=== PATIENT | female | born 1960 | race Two or more races ===

== ENCOUNTER 2019-01-14 20:23 | Emergency (ER) | payer SELFPAY ==
[~2019-01-14] VITALS: Ht 165.1 cm; Wt 54.0 kg
[2019-01-14 22:55] VITALS: BP 122/76
== END 2019-01-15 00:30 | disposition left against medical advice (07) ==
LOC: ER 20:38
DX: Z53.21 Procedure and treatment not carried out due to patient leaving prior to being seen by health care provider (principal); E11.9 Type 2 diabetes mellitus without complications; F17.200 Nicotine dependence, unspecified, uncomplicated

== ENCOUNTER 2020-06-21 08:09 | Emergency (ER) | payer MEDICAID ==
[~2020-06-21] VITALS: Ht 167.6 cm; Wt 59.0 kg
[2020-06-21 08:30] VITALS: BP 144/86
[2020-06-21] MEDS ORDERED: ACETAMINOPHEN 325MG TABLET PO ONE (08:45)
== END 2020-06-21 15:00 | disposition home or self-care (01) ==
LOC: ER 08:09
DX: M54.5 Low back pain (principal); G89.29 Other chronic pain; M79.662 Pain in left lower leg; M79.661 Pain in right lower leg; E11.9 Type 2 diabetes mellitus without complications; I10 Essential (primary) hypertension; F14.10 Cocaine abuse, uncomplicated; Z59.0 Homelessness
CPT/HCPCS: 93005; 93970; 99284

== ENCOUNTER 2021-07-21 18:24 | Inpatient (IN) | payer MEDICAID, OTHER ==
[~2021-07-21] VITALS: Ht 170.2 cm; Wt 63.1 kg
[2021-07-21] MEDS ORDERED: SODIUM CHLORIDE 0.9% 1,000 ML IV ONE ×2 (19:00→20:00)
[2021-07-21 19:25] LABS: BASOPHILS % 0.5 % (0.0-2.0); HEMATOCRIT. 49.8 % (36.0-48.0); LYMPHOCYTES % 11.4 % (20.0-50.0); MEAN CORPUSCULAR HEMOGLOBIN 27.9 pg (28.0-32.0); MEAN CORPUSCULAR VOLUME 92.5 fL (81.0-99.0); MEAN PLATELET VOLUME 11.4 fl (7.4-10.4); MONOCYTES % 7.5 % (2.0-8.0); NEUTROPHILS % 80.6 % (40.0-76.0); PLATELET 213 x1000/uL (130-400); RED BLOOD CELL COUNT 5.38 mill/uL (4.2-5.4); RED CELL DISTRIBUTION WIDTH 17.3 % (11.6-14.6)
[2021-07-21 19:30] LABS: CHLORIDE 128 mEq/L (98-107)
[2021-07-21 19:34] LABS: ETHANOL BLOOD < 10 mg/dL
[2021-07-21 19:40] LABS: BETA HYDROXYBUTYRATE 0.5 mMol/L (0.0-0.3)
[2021-07-21 19:56] LABS: CLARITY URINE CLEAR (CLEAR); COLOR URINE YELLOW (YELLOW); KETONES URINE NEGATIVE (NEGATIVE); LEUKOCYTE ESTERASE URINE NEGATIVE (NEGATIVE); NITRITE URINE NEGATIVE (NEGATIVE); OCCULT BLOOD URINE NEGATIVE (NEGATIVE); PROTEIN URINE NEGATIVE (NEGATIVE); SPECIFIC GRAVITY URINE 1.036 (1.005-1.030); UROBILINOGEN URINE 0.2 E.U./dL (0.2-1.0)
[2021-07-21] MEDS ORDERED: INSULIN REGULAR (DRIP) 100 UNITS in SODIUM CHLORIDE 0.9% 99 ML IV ONE (20:00)
[2021-07-21 20:07] LABS: *AMPHETAMINES SCREEN URINE NEGATIVE (NEGATIVE); *BARBITURATES SCREEN URINE NEGATIVE (NEGATIVE); *BENZODIAZEPINES SCREEN URINE NEGATIVE (NEGATIVE); *COCAINE SCREEN URINE NEGATIVE (NEGATIVE); METHADONE URINE SCREEN NEGATIVE (NEGATIVE); OPIATES URINE SCREEN NEGATIVE (NEGATIVE)
[2021-07-21 20:08] LABS: CANNABINOID URINE SCREEN NEGATIVE (NEGATIVE); PHENCYCLIDINE URINE SCREEN NEGATIVE (NEGATIVE)
[2021-07-21] MEDS ORDERED: DEXTROSE 50% WATER 50ML SYRINGE IV PRN ×2 (20:15)
[2021-07-21] MEDS ORDERED: INSULIN REGULAR (DRIP) 100 UNITS in SODIUM CHLORIDE 0.9% 99 ML IV SCH (20:15)
[2021-07-21] MEDS: BLOOD SUGAR DIAGNOSTIC STRIP TEST SCH ×4 (20:15→23:53)
[2021-07-22] MEDS: BLOOD SUGAR DIAGNOSTIC STRIP TEST SCH ×13 (00:41→21:57)
[2021-07-22] MEDS ORDERED: DEXTROSE 50% WATER 50ML SYRINGE IV PRN (08:00)
[2021-07-22] MEDS: INSULIN LISPRO (MEDIUM DOSE) 100 UNITS/ML SUBCUT SCH ×4 (08:36→21:00)
[2021-07-22] MEDS ORDERED: ACETAMINOPHEN 325MG TABLET PO PRN (09:15)
[2021-07-22] MEDS ORDERED: ONDANSETRON HCL 4MG/2ML INJ IV PRN (09:15)
[2021-07-22] MEDS: LISINOPRIL 20MG TABLET PO SCH (09:40)
[2021-07-22] MEDS: AMLODIPINE 10MG TABLET PO SCH (09:41)
[2021-07-22] MEDS ORDERED: INSULIN GLARGINE UD 100 UNITS/ML SYR SUBCUT SCH ×2 (10:00→22:00)
[2021-07-22] MEDS ORDERED: HYDRALAZINE 20MG/ML VIAL IV NR (10:30)
[2021-07-22 13:06] LABS: CHLORIDE 143 mEq/L (98-107)
[2021-07-22 13:59] VITALS: BP 139/99
[2021-07-22 14:00] VITALS: BP 136/99
[2021-07-22] MEDS ORDERED: DOCU-138 MT (14:29)
[2021-07-22] MEDS ORDERED: AMLO5TAB4 MT (14:29)
[2021-07-22] MEDS ORDERED: METO25TA6 PO (14:29)
[2021-07-22] MEDS ORDERED: MULT-1146 MT (14:29)
[2021-07-22] MEDS ORDERED: ATOR-2 MT (14:29)
[2021-07-22] MEDS ORDERED: SENN-257 MT (14:29)
[2021-07-22] MEDS ORDERED: PANT40TA51 MT (14:29)
[2021-07-22] MEDS ORDERED: ASPI-1497 MT (14:29)
[2021-07-22] MEDS ORDERED: DEXTROSE 5% WATER 1,000 ML IV SCH (14:30)
[2021-07-22] MEDS ORDERED: SODIUM CHLORIDE 0.9% 500 ML IV ONE (16:00)
[2021-07-22] MEDS: SODIUM CHLORIDE 0.45% 1,000 ML IV SCH (16:47)
[2021-07-22 18:00] VITALS: BP 123/96
[2021-07-22 18:30] LABS: T4 FREE 0.96 ng/dL (0.76-1.46)
[2021-07-22 18:41] LABS: FOLIC ACID (FOLATE) SERUM >20 ng/mL ng/mL (>5.38)
[2021-07-22 18:53] LABS: VITAMIN B12 SERUM >2000 pg/mL pg/mL (211-911)
[2021-07-22 20:00] VITALS: BP 123/96
[2021-07-22 22:00] VITALS: BP 145/100
[2021-07-23] VITALS (12 sets, daily range): BP systolic 106–142; BP diastolic 65–94
[2021-07-23] MEDS: SODIUM CHLORIDE 0.45% 1,000 ML IV SCH ×4 (00:26→23:45)
[2021-07-23] MEDS: BLOOD SUGAR DIAGNOSTIC STRIP TEST SCH ×4 (07:04→20:57)
[2021-07-23] MEDS: INSULIN LISPRO (MEDIUM DOSE) 100 UNITS/ML SUBCUT SCH ×4 (07:20→20:57)
[2021-07-23] MEDS: ENOXAPARIN 30MG/0.3ML SYR SUBCUT SCH (08:14)
[2021-07-23] MEDS: AMLODIPINE 10MG TABLET PO SCH (08:15)
[2021-07-23] MEDS: LISINOPRIL 20MG TABLET PO SCH (08:15)
[2021-07-23] MEDS ORDERED: ENOXAPARIN 40MG/0.4ML SYR SUBCUT SCH (09:00)
[2021-07-23 10:41] LABS: BASOPHILS % 0.4 % (0.0-2.0); EOSINOPHILS % 0.7 % (0.0-5.0); HEMATOCRIT. 43.7 % (36.0-48.0); LYMPHOCYTES % 15.7 % (20.0-50.0); MEAN CORPUSCULAR HEMOGLOBIN 28.1 pg (28.0-32.0); MEAN CORPUSCULAR VOLUME 87.8 fL (81.0-99.0); MEAN PLATELET VOLUME 9.8 fl (7.4-10.4); MONOCYTES % 4.5 % (2.0-8.0); NEUTROPHILS % 78.7 % (40.0-76.0); PLATELET 119 x1000/uL (130-400); RED BLOOD CELL COUNT 4.97 mill/uL (4.2-5.4); RED CELL DISTRIBUTION WIDTH 16.6 % (11.6-14.6)
[2021-07-23 10:49] LABS: CHLORIDE 135 mEq/L (98-107)
[2021-07-24] VITALS (12 sets, daily range): BP systolic 91–127; BP diastolic 62–93
[2021-07-24] MEDS: BLOOD SUGAR DIAGNOSTIC STRIP TEST SCH ×4 (06:19→21:42)
[2021-07-24 07:52] LABS: BASOPHILS % 0.2 % (0.0-2.0); EOSINOPHILS % 0.8 % (0.0-5.0); HEMATOCRIT. 46.3 % (36.0-48.0); LYMPHOCYTES % 18.2 % (20.0-50.0); MEAN CORPUSCULAR HEMOGLOBIN 28.3 pg (28.0-32.0); MEAN CORPUSCULAR VOLUME 87.4 fL (81.0-99.0); MONOCYTES % 4.3 % (2.0-8.0); NEUTROPHILS % 76.5 % (40.0-76.0); PLATELET 104 x1000/uL (130-400); RED CELL DISTRIBUTION WIDTH 16.3 % (11.6-14.6)
[2021-07-24 08:39] LABS: CHLORIDE 130 mEq/L (98-107)
[2021-07-24] MEDS ORDERED: LIDOCAINE HCL 1% 20ML VIAL (Pyxis) INJ ONE (08:45)
[2021-07-24] MEDS: INSULIN LISPRO (MEDIUM DOSE) 100 UNITS/ML SUBCUT SCH ×4 (09:51→21:51)
[2021-07-24] MEDS: LISINOPRIL 20MG TABLET PO SCH (09:51)
[2021-07-24] MEDS: AMLODIPINE 10MG TABLET PO SCH (09:51)
[2021-07-24] MEDS: ENOXAPARIN 30MG/0.3ML SYR SUBCUT SCH (09:51)
[2021-07-24] MEDS: SODIUM CHLORIDE 0.45% 1,000 ML IV SCH ×2 (11:34→16:32)
[2021-07-25] VITALS (13 sets, daily range): BP systolic 103–135; BP diastolic 73–96
[2021-07-25] MEDS: SODIUM CHLORIDE 0.45% 1,000 ML IV SCH ×2 (00:01→07:23)
[2021-07-25] MEDS: BLOOD SUGAR DIAGNOSTIC STRIP TEST SCH ×3 (06:45→16:55)
[2021-07-25 07:17] LABS: BASOPHILS % 0.2 % (0.0-2.0); EOSINOPHILS % 0.8 % (0.0-5.0); HEMATOCRIT. 41.7 % (36.0-48.0); HEMOGLOBIN. 13.7 g/dL (12.0-16.0); LYMPHOCYTES % 24.7 % (20.0-50.0); MEAN CORPUSCULAR VOLUME 85.1 fL (81.0-99.0); MEAN PLATELET VOLUME 10.6 fl (7.4-10.4); MONOCYTES % 5.1 % (2.0-8.0); NEUTROPHILS % 69.2 % (40.0-76.0); PLATELET 77 x1000/uL (130-400); RED CELL DISTRIBUTION WIDTH 15.5 % (11.6-14.6)
[2021-07-25] MEDS: INSULIN LISPRO (MEDIUM DOSE) 100 UNITS/ML SUBCUT SCH ×3 (07:23→17:00)
[2021-07-25 07:31] LABS: CHLORIDE 118 mEq/L (98-107)
[2021-07-25] MEDS: AMLODIPINE 10MG TABLET PO SCH (08:39)
[2021-07-25] MEDS: LISINOPRIL 20MG TABLET PO SCH (08:39)
[2021-07-25] MEDS ORDERED: ENOXAPARIN 40MG/0.4ML SYR SUBCUT SCH (09:00)
== END 2021-07-25 21:01 | DRG 420 ==
LOC: ER 18:24 → MICUSO 21:13 → EDBEDREQ 21:16 → EDBEDREQSVC 21:16 → EDBEDREQTM 21:16 → 3WST 07-22 11:46
PROVIDERS: ADMIT Internal Medicine; ATTEND Internal Medicine
PROC: 05H533Z Insertion of Infusion Device into Right Subclavian Vein, Percutaneous Approach (ICD-10-PCS; principal; 2021-07-24)
PROC: B546ZZA Ultrasonography of Right Subclavian Vein, Guidance (ICD-10-PCS; 2021-07-24)
DX: E11.00 Type 2 diabetes mellitus with hyperosmolarity without nonketotic hyperglycemic-hyperosmolar coma (NKHHC) (principal); N17.0 Acute kidney failure with tubular necrosis; G92 Toxic encephalopathy; E44.0 Moderate protein-calorie malnutrition; E87.0 Hyperosmolality and hypernatremia; E87.8 Other disorders of electrolyte and fluid balance, not elsewhere classified; E86.0 Dehydration; E87.1 Hypo-osmolality and hyponatremia; I10 Essential (primary) hypertension; Z86.73 Personal history of transient ischemic attack (TIA), and cerebral infarction without residual deficits; Z86.79 Personal history of other diseases of the circulatory system; Z68.21 Body mass index [BMI] 21.0-21.9, adult; E11.65 Type 2 diabetes mellitus with hyperglycemia
CPT/HCPCS: 36415; 71045; 76937; 80048; 80053; 80305; 80320; 81003; 82010; 82140; 82607; 82746; 82962; 83036; 84439; 84443; 84481; 84484; 85025; 92610; 93005; 97162; 99291; A6261; C1725; C1769; J0360; J1650; J1815; J3490; J7030; J7040; J7050; J7070; G0480

== ENCOUNTER 2021-08-16 05:54 | Inpatient (IN) | payer MEDICAID, OTHER ==
[~2021-08-16] VITALS: Ht 167.6 cm; Wt 54.4 kg
[2021-08-16] MEDS ORDERED: SODIUM CHLORIDE 0.9% 1,000 ML IV ONE (06:45)
[2021-08-16 07:19] LABS: BASOPHILS % 0.3 % (0.0-2.0); EOSINOPHILS % 0.4 % (0.0-5.0); HEMATOCRIT. 34.4 % (36.0-48.0); HEMOGLOBIN. 11.1 g/dL (12.0-16.0); LYMPHOCYTES % 14.1 % (20.0-50.0); MEAN CORPUSCULAR HEMOGLOBIN 28.3 pg (28.0-32.0); MEAN CORPUSCULAR VOLUME 87.5 fL (81.0-99.0); MEAN PLATELET VOLUME 8.5 fl (7.4-10.4); MONOCYTES % 5.9 % (2.0-8.0); NEUTROPHILS % 79.3 % (40.0-76.0); PLATELET 358 x1000/uL (130-400); RED BLOOD CELL COUNT 3.93 mill/uL (4.2-5.4); RED CELL DISTRIBUTION WIDTH 16.3 % (11.6-14.6)
[2021-08-16 07:20] LABS: CHLORIDE 112 mEq/L (98-107)
[2021-08-16 07:25] LABS: ETHANOL BLOOD < 10 mg/dL
[2021-08-16 07:28] LABS: BETA HYDROXYBUTYRATE 0.5 mMol/L (0.0-0.3)
[2021-08-16 08:00] LABS: CLARITY URINE CLEAR (CLEAR); COLOR URINE YELLOW (YELLOW); KETONES URINE NEGATIVE (NEGATIVE); LEUKOCYTE ESTERASE URINE NEGATIVE (NEGATIVE); NITRITE URINE NEGATIVE (NEGATIVE); OCCULT BLOOD URINE NEGATIVE (NEGATIVE); PH URINE 7.5 (4.5-8.0); PROTEIN URINE 2+ (NEGATIVE); SPECIFIC GRAVITY URINE 1.028 (1.005-1.030); UROBILINOGEN URINE 0.2 E.U./dL (0.2-1.0)
[2021-08-16 08:39] LABS: BG BASE EXCESS 3.7 mmol/L (-2.0-2.0); BG CARBOXYHEMOGLOBIN 0.2 % (0.5-1.5); BG DEOXYHEMOGLOBIN 3.8 % (0.0-5.0); BG FRACTION INSPIRED OXYGEN 21; BG HCO3 ACT 27.2 mmol/L (22.0-26.0); BG METHEMOGLOBIN 0.3 % (0.0-1.5); BG OXYGEN SATURATION 96.2 % (92.0-98.5); BG OXYHEMOGLOBIN 95.7 % (94.0-97.0); BG PCO2 37.6 mmHg (35.0-45.0); BG PH 7.478 (7.350-7.450); BG PO2 81.6 mmHg (75.0-100.0); BG SAMPLE SITE RIGHT RADIAL; BG TOTAL HEMOGLOBIN 12.1 g/dL (12.0-18.0); BG VENT MODE ROOM AIR
[2021-08-16 08:43] LABS: *AMPHETAMINES SCREEN URINE NEGATIVE (NEGATIVE); *BARBITURATES SCREEN URINE NEGATIVE (NEGATIVE); *BENZODIAZEPINES SCREEN URINE NEGATIVE (NEGATIVE); *COCAINE SCREEN URINE NEGATIVE (NEGATIVE); METHADONE URINE SCREEN NEGATIVE (NEGATIVE); OPIATES URINE SCREEN NEGATIVE (NEGATIVE)
[2021-08-16 08:44] LABS: CANNABINOID URINE SCREEN NEGATIVE (NEGATIVE); PHENCYCLIDINE URINE SCREEN NEGATIVE (NEGATIVE)
[2021-08-16] MEDS ORDERED: ACETAMINOPHEN 650MG/20.3ML UDC GT PRN (12:00)
[2021-08-16] MEDS ORDERED: DIPHENHYDRAMINE 50MG/ML VIAL IV PRN (12:00)
[2021-08-16] MEDS ORDERED: ONDANSETRON HCL 4MG/2ML INJ IV PRN (12:00)
[2021-08-16] MEDS ORDERED: IPRATROPIUM/ALBUTEROL 0.5-3(2.5)MG/3ML NEB HHN PRN (12:00)
[2021-08-16] MEDS: DEXT 5%/0.9% NACL 1,000 ML IV SCH (12:12)
[2021-08-16 22:18] LABS: T4 FREE 1.07 ng/dL (0.76-1.46)
[2021-08-16 22:19] VITALS: BP 130/96
[2021-08-16 22:30] LABS: FOLIC ACID (FOLATE) SERUM 19.1 ng/mL (>5.38)
[2021-08-17] VITALS (7 sets, daily range): BP systolic 119–147; BP diastolic 84–111
[2021-08-17] MEDS ORDERED: HYDR-4001 MT (00:56)
[2021-08-17] MEDS ORDERED: FAMO20TA8 PO (00:56)
[2021-08-17] MEDS ORDERED: AMOX1TAB16 MT (00:56)
[2021-08-17] MEDS ORDERED: LISI20TA31 PO (00:56)
[2021-08-17] MEDS ORDERED: LORA2ORA5 PO (00:56)
[2021-08-17] MEDS ORDERED: DILT60TA35 PO (00:56)
[2021-08-17] MEDS ORDERED: ATOR-2 PO (00:56)
[2021-08-17] MEDS ORDERED: CLON-457 PO (00:56)
[2021-08-17] MEDS ORDERED: CLOP75TA33 PO (00:56)
[2021-08-17] MEDS ORDERED: DEXTROSE 50% WATER 50ML SYRINGE IV PRN (02:30)
[2021-08-17] MEDS: BLOOD SUGAR DIAGNOSTIC STRIP TEST SCH ×4 (06:47→21:37)
[2021-08-17] MEDS: HYDRALAZINE 20MG/ML VIAL IV PRN (06:48)
[2021-08-17 07:11] LABS: BASOPHILS % 0.4 % (0.0-2.0); EOSINOPHILS % 0.6 % (0.0-5.0); HEMOGLOBIN. 11.1 g/dL (12.0-16.0); LYMPHOCYTES % 12.6 % (20.0-50.0); MEAN CORPUSCULAR HEMOGLOBIN 28.2 pg (28.0-32.0); MEAN CORPUSCULAR VOLUME 89.1 fL (81.0-99.0); MEAN PLATELET VOLUME 8.4 fl (7.4-10.4); MONOCYTES % 5.8 % (2.0-8.0); NEUTROPHILS % 80.6 % (40.0-76.0); PLATELET 332 x1000/uL (130-400); RED BLOOD CELL COUNT 3.93 mill/uL (4.2-5.4); RED CELL DISTRIBUTION WIDTH 16.8 % (11.6-14.6)
[2021-08-17 07:26] LABS: CHLORIDE 117 mEq/L (98-107)
[2021-08-17 07:41] LABS: LDL CHOLESTEROL 86 mg/dL (5-100)
[2021-08-17 07:42] LABS: HDL CHOLESTEROL 30 mg/dL (40-59)
[2021-08-17] MEDS ORDERED: DILTIAZEM HCL 30MG TABLET PO SCH (09:00)
[2021-08-17] MEDS: DEXT 5%/0.9% NACL 1,000 ML IV SCH (09:18)
[2021-08-17] MEDS: INSULIN LISPRO 100 UNITS/ML SUBCUT SCH ×4 (09:20→21:38)
[2021-08-17] MEDS: CLOPIDOGREL 75MG TABLET PO SCH (09:20)
[2021-08-17] MEDS ORDERED: VANCOMYCIN 1 G PREMIX 200 ML IV NR ×2 (18:00→20:00)
[2021-08-18] VITALS: BP 129/95
[2021-08-18 04:00] VITALS: BP 142/97
[2021-08-18] MEDS: DEXT 5%/0.9% NACL 1,000 ML IV SCH ×2 (05:05→08:17)
[2021-08-18] MEDS: VANCOMYCIN 500 MG PREMIX 100 ML IV SCH ×3 (05:05→21:47)
[2021-08-18] MEDS: BLOOD SUGAR DIAGNOSTIC STRIP TEST SCH ×4 (07:31→21:47)
[2021-08-18 07:54] VITALS: BP 158/106
[2021-08-18] MEDS: INSULIN LISPRO 100 UNITS/ML SUBCUT SCH ×4 (09:42→21:49)
[2021-08-18] MEDS: ASCORBIC ACID 500 MG TABLET PO SCH (09:42)
[2021-08-18] MEDS: CLOPIDOGREL 75MG TABLET PO SCH (09:42)
[2021-08-18] MEDS: ZINC SULFATE 220 MG ( 50 ) CAPSULE PO SCH (09:43)
[2021-08-18 10:16] LABS: BASOPHILS % 0.4 % (0.0-2.0); CHLORIDE 116 mEq/L (98-107); EOSINOPHILS % 0.4 % (0.0-5.0); HEMOGLOBIN. 11.7 g/dL (12.0-16.0); LYMPHOCYTES % 15.6 % (20.0-50.0); MEAN CORPUSCULAR VOLUME 91.9 fL (81.0-99.0); MEAN PLATELET VOLUME 8.9 fl (7.4-10.4); MONOCYTES % 5.7 % (2.0-8.0); NEUTROPHILS % 77.9 % (40.0-76.0); PLATELET 315 x1000/uL (130-400); RED BLOOD CELL COUNT 4.03 mill/uL (4.2-5.4); RED CELL DISTRIBUTION WIDTH 16.7 % (11.6-14.6)
[2021-08-18 11:21] VITALS: BP 164/109
[2021-08-18] MEDS: CLONIDINE 0.1MG TABLET PO PRN ×2 (11:27→21:47)
[2021-08-18] MEDS: DILTIAZEM HCL 30MG TABLET PO SCH ×2 (15:20→21:47)
[2021-08-18 15:22] VITALS: BP 126/87
[2021-08-18 20:00] VITALS: BP 149/108
[2021-08-19] VITALS: BP 142/102
[2021-08-19 04:00] VITALS: BP 149/106
[2021-08-19] MEDS: VANCOMYCIN 500 MG PREMIX 100 ML IV SCH (05:16)
[2021-08-19] MEDS: HYDRALAZINE 20MG/ML VIAL IV PRN (05:21)
[2021-08-19] MEDS: DILTIAZEM HCL 30MG TABLET PO SCH ×3 (05:21→21:42)
[2021-08-19] MEDS: DEXT 5%/0.9% NACL 1,000 ML IV SCH (06:27)
[2021-08-19] MEDS: BLOOD SUGAR DIAGNOSTIC STRIP TEST SCH ×4 (06:27→21:25)
[2021-08-19] MEDS: INSULIN LISPRO 100 UNITS/ML SUBCUT SCH ×4 (07:50→21:43)
[2021-08-19 08:00] VITALS: BP 127/91
[2021-08-19 08:30] LABS: BASOPHILS % 0.3 % (0.0-2.0); EOSINOPHILS % 0.6 % (0.0-5.0); HEMATOCRIT. 36.7 % (36.0-48.0); HEMOGLOBIN. 11.8 g/dL (12.0-16.0); LYMPHOCYTES % 13.1 % (20.0-50.0); MEAN CORPUSCULAR HEMOGLOBIN 28.6 pg (28.0-32.0); MEAN CORPUSCULAR VOLUME 89.1 fL (81.0-99.0); MEAN PLATELET VOLUME 8.9 fl (7.4-10.4); MONOCYTES % 4.5 % (2.0-8.0); NEUTROPHILS % 81.5 % (40.0-76.0); PLATELET 352 x1000/uL (130-400); RED BLOOD CELL COUNT 4.12 mill/uL (4.2-5.4); RED CELL DISTRIBUTION WIDTH 16.8 % (11.6-14.6)
[2021-08-19 08:31] LABS: CHLORIDE 110 mEq/L (98-107)
[2021-08-19] MEDS: ZINC SULFATE 220 MG ( 50 ) CAPSULE PO SCH (09:54)
[2021-08-19] MEDS: CLOPIDOGREL 75MG TABLET PO SCH (09:54)
[2021-08-19] MEDS: ASCORBIC ACID 500 MG TABLET PO SCH (09:54)
[2021-08-19 12:00] VITALS: BP 150/95
[2021-08-19 16:00] VITALS: BP 134/87
[2021-08-19] MEDS ORDERED: VANCOMYCIN 500 MG PREMIX 100 ML IV SCH (19:00)
[2021-08-19 20:00] VITALS: BP 127/91
[2021-08-19] MEDS: CLONIDINE 0.1MG TABLET PO PRN (21:42)
[2021-08-20] VITALS: BP 124/85
[2021-08-20 04:00] VITALS: BP 122/89
[2021-08-20] MEDS: DILTIAZEM HCL 30MG TABLET PO SCH ×3 (05:58→21:55)
[2021-08-20] MEDS: DEXT 5%/0.9% NACL 1,000 ML IV SCH (05:59)
[2021-08-20] MEDS: BLOOD SUGAR DIAGNOSTIC STRIP TEST SCH ×4 (07:20→21:56)
[2021-08-20 07:29] LABS: BASOPHILS % 0.4 % (0.0-2.0); EOSINOPHILS % 0.7 % (0.0-5.0); HEMATOCRIT. 31.1 % (36.0-48.0); HEMOGLOBIN. 10.1 g/dL (12.0-16.0); LYMPHOCYTES % 12.8 % (20.0-50.0); MEAN CORPUSCULAR HEMOGLOBIN 28.5 pg (28.0-32.0); MEAN PLATELET VOLUME 8.5 fl (7.4-10.4); MONOCYTES % 5.3 % (2.0-8.0); NEUTROPHILS % 80.8 % (40.0-76.0); PLATELET 313 x1000/uL (130-400); RED BLOOD CELL COUNT 3.53 mill/uL (4.2-5.4); RED CELL DISTRIBUTION WIDTH 16.7 % (11.6-14.6)
[2021-08-20 07:40] LABS: CHLORIDE 107 mEq/L (98-107)
[2021-08-20 08:00] VITALS: BP 133/99
[2021-08-20] MEDS: ZINC SULFATE 220 MG ( 50 ) CAPSULE PO SCH (09:11)
[2021-08-20] MEDS: CLOPIDOGREL 75MG TABLET PO SCH (09:12)
[2021-08-20] MEDS: ASCORBIC ACID 500 MG TABLET PO SCH (09:12)
[2021-08-20] MEDS: INSULIN LISPRO 100 UNITS/ML SUBCUT SCH ×4 (09:14→21:56)
[2021-08-20 11:57] VITALS: BP 150/110
[2021-08-20 16:25] VITALS: BP 159/108
[2021-08-20 20:00] VITALS: BP 154/98
[2021-08-20] MEDS: CLONIDINE 0.1MG TABLET PO PRN (21:55)
[2021-08-21] VITALS: BP 120/82
[2021-08-21 04:00] VITALS: BP 138/101
[2021-08-21] MEDS: CLONIDINE 0.1MG TABLET PO PRN ×2 (04:09→08:57)
[2021-08-21] MEDS: DILTIAZEM HCL 30MG TABLET PO SCH ×2 (05:48→14:24)
[2021-08-21] MEDS: HYDRALAZINE 20MG/ML VIAL IV PRN (05:53)
[2021-08-21] MEDS: BLOOD SUGAR DIAGNOSTIC STRIP TEST SCH ×2 (07:50→12:20)
[2021-08-21 07:51] VITALS: BP 147/97
[2021-08-21] MEDS: INSULIN LISPRO 100 UNITS/ML SUBCUT SCH ×2 (08:56→12:23)
[2021-08-21] MEDS: CLOPIDOGREL 75MG TABLET PO SCH (08:57)
[2021-08-21] MEDS: ASCORBIC ACID 500 MG TABLET PO SCH (08:57)
[2021-08-21] MEDS: ZINC SULFATE 220 MG ( 50 ) CAPSULE PO SCH (08:57)
[2021-08-21] MEDS ORDERED: DILT30TA38 PO (11:38)
[2021-08-21 12:02] VITALS: BP 125/93
[2021-08-21 14:45] VITALS: BP 125/93
[2021-08-21 16:01] VITALS: BP 120/83
== END 2021-08-21 18:57 | DRG 720 ==
LOC: ER 05:54 → MICUSO 12:21 → 6WST 20:05
PROVIDERS: ADMIT Internal Medicine; ATTEND Internal Medicine
PROC: 4A10X4Z Monitoring of Central Nervous Electrical Activity, External Approach (ICD-10-PCS; principal; 2021-08-17)
DX: A41.9 Sepsis, unspecified organism (principal); L89.150 Pressure ulcer of sacral region, unstageable; G92.8 Other toxic encephalopathy; E44.0 Moderate protein-calorie malnutrition; N17.9 Acute kidney failure, unspecified; R53.2 Functional quadriplegia; E11.51 Type 2 diabetes mellitus with diabetic peripheral angiopathy without gangrene; L89.616 Pressure-induced deep tissue damage of right heel; D64.9 Anemia, unspecified; E11.65 Type 2 diabetes mellitus with hyperglycemia; E78.00 Pure hypercholesterolemia, unspecified; I10 Essential (primary) hypertension; S80.829A Blister (nonthermal), unspecified lower leg, initial encounter; X58.XXXA Exposure to other specified factors, initial encounter; E78.5 Hyperlipidemia, unspecified; Z74.01 Bed confinement status; Z79.4 Long term (current) use of insulin; Z86.79 Personal history of other diseases of the circulatory system; Z59.00 Homelessness unspecified; Z86.73 Personal history of transient ischemic attack (TIA), and cerebral infarction without residual deficits; Y93.89 Activity, other specified; Y92.89 Other specified places as the place of occurrence of the external cause; Y99.8 Other external cause status; Z79.899 Other long term (current) drug therapy; Z68.1 Body mass index [BMI] 19.9 or less, adult
CPT/HCPCS: 36415; 36600; 71045; 80048; 80053; 80061; 80202; 80305; 80320; 81003; 82010; 82040; 82140; 82270; 82375; 82607; 82746; 82805; 82962; 83036; 83605; 83880; 84134; 84145; 84439; 84443; 84481; 84484; 85025; 92610; 93005; 93970; 99285; J0360; J1815; J3370; J7030; J7042; G0480

== ENCOUNTER 2021-09-15 01:02 | Inpatient (IN) | payer MEDICAID ==
[2021-09-15] VITALS (7 sets, daily range): BP systolic 112–136; BP diastolic 82–98
[~2021-09-15] VITALS: Ht 175.3 cm; Wt 55.3 kg
[~2021-09-15 01:02] MED LIST: ATOR-2 PO; CLON-457 PO; CLOP75TA33 PO; DILT30TA38 PO; FAMO20TA8 PO; HYDR-4001 MT; LISI20TA31 PO; LORA2ORA5 PO
[2021-09-15] MEDS ORDERED: SODIUM CHLORIDE 0.9% 1,000 ML IV ONE (02:00)
[2021-09-15 03:11] LABS: BG BASE EXCESS 4.3 mmol/L (-2.0-2.0); BG CARBOXYHEMOGLOBIN 0.3 % (0.5-1.5); BG DEOXYHEMOGLOBIN 0.3 % (0.0-5.0); BG FRACTION INSPIRED OXYGEN 100; BG HCO3 ACT 29.5 mmol/L (22.0-26.0); BG METHEMOGLOBIN 0.6 % (0.0-1.5); BG OXYGEN SATURATION 99.7 % (92.0-98.5); BG OXYHEMOGLOBIN 98.8 % (94.0-97.0); BG PCO2 45.5 mmHg (35.0-45.0); BG PH 7.429 (7.350-7.450); BG PO2 449.7 mmHg (75.0-100.0); BG SAMPLE SITE RIGHT RADIAL; BG TOTAL HEMOGLOBIN 15.4 g/dL (12.0-18.0); BG VENT MODE MASK - NRB
[2021-09-15 03:53] LABS: BASOPHILS % 0.8 % (0.0-2.0); EOSINOPHILS % 0.1 % (0.0-5.0); HEMATOCRIT. 50.2 % (36.0-48.0); LYMPHOCYTES % 12.9 % (20.0-50.0); MEAN CORPUSCULAR HEMOGLOBIN 27.7 pg (28.0-32.0); MEAN CORPUSCULAR VOLUME 92.7 fL (81.0-99.0); MEAN PLATELET VOLUME 11.6 fl (7.4-10.4); MONOCYTES % 6.8 % (2.0-8.0); NEUTROPHILS % 79.4 % (40.0-76.0); PLATELET 163 x1000/uL (130-400); RED BLOOD CELL COUNT 5.42 mill/uL (4.2-5.4); RED CELL DISTRIBUTION WIDTH 18.1 % (11.6-14.6)
[2021-09-15 03:58] LABS: CHLORIDE 135 mEq/L (98-107)
[2021-09-15 03:59] LABS: CLARITY URINE TURBID (CLEAR); COLOR URINE DARK YELLOW (YELLOW); KETONES URINE NEGATIVE (NEGATIVE); LEUKOCYTE ESTERASE URINE 3+ (NEGATIVE); NITRITE URINE NEGATIVE (NEGATIVE); OCCULT BLOOD URINE TRACE (NEGATIVE); PH URINE >=9.0 (4.5-8.0); PROTEIN URINE 4+ (NEGATIVE); SPECIFIC GRAVITY URINE 1.029 (1.005-1.030)
[2021-09-15 04:05] LABS: ETHANOL BLOOD < 10 mg/dL
[2021-09-15 04:21] LABS: BETA HYDROXYBUTYRATE 0.1 mMol/L (0.0-0.3)
[2021-09-15] MEDS ORDERED: CEFEPIME 1,000 MG in DEXTROSE 5% WATER 50 ML IV SCH (04:30)
[2021-09-15] MEDS ORDERED: VANCOMYCIN 1 G PREMIX 200 ML IV SCH (04:30)
[2021-09-15 04:34] LABS: *AMPHETAMINES SCREEN URINE NEGATIVE (NEGATIVE); *BARBITURATES SCREEN URINE NEGATIVE (NEGATIVE); *BENZODIAZEPINES SCREEN URINE NEGATIVE (NEGATIVE)
[2021-09-15 04:36] LABS: CANNABINOID URINE SCREEN NEGATIVE (NEGATIVE); METHADONE URINE SCREEN NEGATIVE (NEGATIVE); OPIATES URINE SCREEN NEGATIVE (NEGATIVE); PHENCYCLIDINE URINE SCREEN NEGATIVE (NEGATIVE)
[2021-09-15 04:44] LABS: *COCAINE SCREEN URINE NEGATIVE (NEGATIVE)
[2021-09-15] MEDS ORDERED: ONDANSETRON HCL 4MG/2ML INJ IV PRN (15:00)
[2021-09-15] MEDS ORDERED: DEXTROSE 50% WATER 50ML SYRINGE IV PRN (15:00)
[2021-09-15] MEDS ORDERED: MAGNESIUM/ALUMINUM HYDROXIDE/SIMETHICONE 30ML UDC PO PRN (15:00)
[2021-09-15] MEDS ORDERED: DOCUSATE SODIUM 100MG CAPSULE PO PRN (15:00)
[2021-09-15] MEDS ORDERED: ACETAMINOPHEN 325MG TABLET PO PRN ×2 (15:00)
[2021-09-15] MEDS ORDERED: PIPERACILLIN/TAZ 3.375G PREMIX 50 ML IV SCH (15:00)
[2021-09-15] MEDS ORDERED: CLONIDINE 0.1MG TABLET PO PRN (15:00)
[2021-09-15] MEDS ORDERED: NITROGLYCERIN 0.4MG TABLET SL SL PRN (15:00)
[2021-09-15] MEDS ORDERED: IPRATROPIUM/ALBUTEROL 0.5-3(2.5)MG/3ML NEB NEB PRN (15:00)
[2021-09-15] MEDS ORDERED: GUAIFENESIN 200MG/10ML SUGAR FREE UDC PO PRN (15:00)
[2021-09-15] MEDS: DEXT 5%/0.45% NACL 1000ML 1,000 ML IV SCH (15:58)
[2021-09-15] MEDS: PIPERACILLIN/TAZOBACTAM 3.375G in DEXT 5% WATER 50ML IV SCH ×2 (16:00→22:01)
[2021-09-15] MEDS: VANCOMYCIN 750 MG PREMIX 150 ML IV SCH (17:00)
[2021-09-15] MEDS: BLOOD SUGAR DIAGNOSTIC STRIP TEST SCH ×2 (17:04→21:21)
[2021-09-15] MEDS: INSULIN LISPRO 100 UNITS/ML SUBCUT SCH ×2 (17:15→21:20)
[2021-09-15] MEDS: DILTIAZEM HCL 30MG TABLET PO SCH (18:08)
[2021-09-15 20:43] LABS: VITAMIN B12 SERUM 1594 pg/mL (211-911)
[2021-09-15] MEDS: ENOXAPARIN 30MG/0.3ML SYR SUBCUT SCH (21:19)
[2021-09-15] MEDS: FAMOTIDINE 20MG TABLET PO SCH (21:20)
[2021-09-16] VITALS (12 sets, daily range): BP systolic 106–132; BP diastolic 78–108
[2021-09-16] MEDS: DILTIAZEM HCL 30MG TABLET PO SCH ×5 (00:08→23:26)
[2021-09-16] MEDS: DEXT 5%/0.45% NACL 1000ML 1,000 ML IV SCH ×3 (01:00→21:30)
[2021-09-16 02:06] LABS: CREATINE KINASE MB FRACTION 1.6 ng/mL (0.5-3.6)
[2021-09-16] MEDS: VANCOMYCIN 750 MG PREMIX 150 ML IV SCH ×2 (05:32→17:45)
[2021-09-16] MEDS: PIPERACILLIN/TAZOBACTAM 3.375G in DEXT 5% WATER 50ML IV SCH ×3 (05:58→21:29)
[2021-09-16 06:37] LABS: BASOPHILS % 0.4 % (0.0-2.0); EOSINOPHILS % 0.5 % (0.0-5.0); HEMATOCRIT. 44.4 % (36.0-48.0); HEMOGLOBIN. 13.8 g/dL (12.0-16.0); LYMPHOCYTES % 17.7 % (20.0-50.0); MEAN CORPUSCULAR HEMOGLOBIN 28.8 pg (28.0-32.0); MEAN PLATELET VOLUME 12.9 fl (7.4-10.4); MONOCYTES % 5.3 % (2.0-8.0); NEUTROPHILS % 76.1 % (40.0-76.0); PLATELET 148 x1000/uL (130-400); RED BLOOD CELL COUNT 4.78 mill/uL (4.2-5.4); RED CELL DISTRIBUTION WIDTH 17.6 % (11.6-14.6)
[2021-09-16] MEDS: BLOOD SUGAR DIAGNOSTIC STRIP TEST SCH ×4 (07:30→21:34)
[2021-09-16] MEDS: INSULIN LISPRO 100 UNITS/ML SUBCUT SCH ×4 (08:35→21:31)
[2021-09-16] MEDS: FAMOTIDINE 20MG TABLET PO SCH ×2 (08:36→21:29)
[2021-09-16 08:51] LABS: CHLORIDE 129 mEq/L (98-107)
[2021-09-16 09:00] LABS: PHOSPHORUS 2.7 mg/dL (2.5-4.9)
[2021-09-16 09:02] LABS: CREATINE KINASE 281 IU/L (26-192)
[2021-09-16 09:05] LABS: CREATINE KINASE MB FRACTION 1.4 ng/mL (0.5-3.6)
[2021-09-16] MEDS: ENOXAPARIN 30MG/0.3ML SYR SUBCUT SCH (21:29)
[2021-09-17] VITALS (12 sets, daily range): BP systolic 110–141; BP diastolic 71–95
[2021-09-17] MEDS: VANCOMYCIN 750 MG PREMIX 150 ML IV SCH ×2 (04:18→17:00)
[2021-09-17] MEDS: DILTIAZEM HCL 30MG TABLET PO SCH ×3 (05:15→18:13)
[2021-09-17] MEDS: PIPERACILLIN/TAZOBACTAM 3.375G in DEXT 5% WATER 50ML IV SCH ×2 (05:15→14:00)
[2021-09-17] MEDS: DEXT 5%/0.45% NACL 1000ML 1,000 ML IV SCH (06:06)
[2021-09-17 06:14] LABS: CHLORIDE 123 mEq/L (98-107)
[2021-09-17] MEDS: BLOOD SUGAR DIAGNOSTIC STRIP TEST SCH ×4 (07:30→20:49)
[2021-09-17] MEDS: INSULIN LISPRO 100 UNITS/ML SUBCUT SCH ×4 (08:00→20:55)
[2021-09-17] MEDS: FAMOTIDINE 20MG TABLET PO SCH ×2 (09:52→20:48)
[2021-09-17] MEDS: ENOXAPARIN 30MG/0.3ML SYR SUBCUT SCH (20:49)
[2021-09-18] VITALS (12 sets, daily range): BP systolic 119–159; BP diastolic 87–107
[2021-09-18] MEDS: PIPERACILLIN/TAZOBACTAM 3.375G in DEXT 5% WATER 50ML IV SCH ×4 (00:17→21:19)
[2021-09-18] MEDS: DILTIAZEM HCL 30MG TABLET PO SCH ×4 (00:18→17:29)
[2021-09-18] MEDS: DEXT 5%/0.45% NACL 1000ML 1,000 ML IV SCH ×3 (03:10→22:07)
[2021-09-18] MEDS: VANCOMYCIN 750 MG PREMIX 150 ML IV SCH ×2 (04:19→17:29)
[2021-09-18] MEDS: BLOOD SUGAR DIAGNOSTIC STRIP TEST SCH ×4 (07:53→21:22)
[2021-09-18] MEDS: FAMOTIDINE 20MG TABLET PO SCH ×2 (08:25→21:22)
[2021-09-18] MEDS: INSULIN LISPRO 100 UNITS/ML SUBCUT SCH ×4 (08:26→21:21)
[2021-09-18 08:33] LABS: CHLORIDE 113 mEq/L (98-107)
[2021-09-18] MEDS: ENOXAPARIN 30MG/0.3ML SYR SUBCUT SCH (21:20)
[2021-09-19] VITALS (12 sets, daily range): BP systolic 116–155; BP diastolic 77–111
[2021-09-19] MEDS: DILTIAZEM HCL 30MG TABLET PO SCH ×4 (00:49→18:27)
[2021-09-19] MEDS: VANCOMYCIN 750 MG PREMIX 150 ML IV SCH ×2 (05:35→16:14)
[2021-09-19] MEDS: PIPERACILLIN/TAZOBACTAM 3.375G in DEXT 5% WATER 50ML IV SCH ×3 (06:53→21:39)
[2021-09-19] MEDS: BLOOD SUGAR DIAGNOSTIC STRIP TEST SCH ×3 (07:30→18:28)
[2021-09-19] MEDS ORDERED: DEXTROSE 50% WATER 50ML SYRINGE IV PRN (08:30)
[2021-09-19] MEDS: DEXT 5%/0.45% NACL 1000ML 1,000 ML IV SCH ×2 (08:37→18:30)
[2021-09-19] MEDS: FAMOTIDINE 20MG TABLET PO SCH ×2 (08:37→21:39)
[2021-09-19] MEDS: INSULIN LISPRO 100 UNITS/ML SUBCUT SCH ×4 (08:42→18:29)
[2021-09-19 13:09] LABS: CHLORIDE 109 mEq/L (98-107)
[2021-09-19] MEDS: ENOXAPARIN 30MG/0.3ML SYR SUBCUT SCH (21:39)
[2021-09-20] VITALS (12 sets, daily range): BP systolic 113–142; BP diastolic 73–108
[2021-09-20] MEDS: BLOOD SUGAR DIAGNOSTIC STRIP TEST SCH ×4 (00:20→18:54)
[2021-09-20] MEDS: DILTIAZEM HCL 30MG TABLET PO SCH ×4 (00:20→18:52)
[2021-09-20] MEDS: INSULIN LISPRO 100 UNITS/ML SUBCUT SCH ×4 (00:20→18:53)
[2021-09-20 03:39] LABS: CHLORIDE 112 mEq/L (98-107)
[2021-09-20] MEDS: PIPERACILLIN/TAZOBACTAM 3.375G in DEXT 5% WATER 50ML IV SCH (05:30)
[2021-09-20] MEDS: VANCOMYCIN 750 MG PREMIX 150 ML IV SCH ×2 (05:30→17:56)
[2021-09-20] MEDS: DEXT 5%/0.45% NACL 1000ML 1,000 ML IV SCH ×2 (05:35→15:07)
[2021-09-20] MEDS: FAMOTIDINE 20MG TABLET PO SCH ×2 (09:25→21:20)
[2021-09-20] MEDS: ENOXAPARIN 30MG/0.3ML SYR SUBCUT SCH (21:20)
== END 2021-09-20 23:45 | DRG 720 ==
LOC: ER 01:02 → EDBEDREQSVC 06:10 → MICUSO 06:40 → 5EST 11:54
PROVIDERS: ADMIT Internal Medicine; ATTEND Internal Medicine
DX: A41.9 Sepsis, unspecified organism (principal); E43 Unspecified severe protein-calorie malnutrition; L89.154 Pressure ulcer of sacral region, stage 4; J96.92 Respiratory failure, unspecified with hypercapnia; J96.91 Respiratory failure, unspecified with hypoxia; G92.8 Other toxic encephalopathy; N17.9 Acute kidney failure, unspecified; E87.0 Hyperosmolality and hypernatremia; J44.1 Chronic obstructive pulmonary disease with (acute) exacerbation; I10 Essential (primary) hypertension; S90.521A Blister (nonthermal), right ankle, initial encounter; R65.20 Severe sepsis without septic shock; S80.822A Blister (nonthermal), left lower leg, initial encounter; X58.XXXA Exposure to other specified factors, initial encounter; E11.51 Type 2 diabetes mellitus with diabetic peripheral angiopathy without gangrene; Z20.822 Contact with and (suspected) exposure to COVID-19; N39.0 Urinary tract infection, site not specified; E78.00 Pure hypercholesterolemia, unspecified; S90.821A Blister (nonthermal), right foot, initial encounter; Z74.01 Bed confinement status; Z82.49 Family history of ischemic heart disease and other diseases of the circulatory system; Z86.73 Personal history of transient ischemic attack (TIA), and cerebral infarction without residual deficits; Z79.899 Other long term (current) drug therapy; Y93.89 Activity, other specified; Y92.89 Other specified places as the place of occurrence of the external cause; Y99.8 Other external cause status; Z68.1 Body mass index [BMI] 19.9 or less, adult; E87.1 Hypo-osmolality and hyponatremia
CPT/HCPCS: 36415; 36600; 71045; 80048; 80053; 80202; 80305; 80307; 80320; 80329; 81003; 82010; 82040; 82140; 82375; 82550; 82553; 82607; 82805; 82962; 83036; 83605; 83735; 83880; 83930; 84100; 84134; 84439; 84443; 84484; 85025; 87077; 87186; 87426; 93005; 93306; 93970; 99291; J0692; J1650; J1815; J2543; J3370; J7030; J7060; A4315; G0480

== ENCOUNTER 2021-09-21 23:30 | Emergency (ER) | payer MEDICAID ==
[~2021-09-21] VITALS: Ht 165.1 cm; Wt 69.0 kg
[2021-09-22 00:37] LABS: HEMOGLOBIN 12.5 g/dL (12.0-16.0); MEAN CORPUSCULAR HEMOGLOBIN 28.2 pg (28.0-32.0); PLATELET 198 x1000/uL (130-400); RED BLOOD CELL COUNT 4.43 mill/uL (4.2-5.4); RED CELL DISTRIBUTION WIDTH 16.6 % (11.6-14.6)
[2021-09-22 00:42] LABS: CHLORIDE 111 mEq/L (98-107)
[2021-09-22 05:45] VITALS: BP 144/100
== END 2021-09-22 05:54 ==
LOC: ER 23:30
DX: Z00.00 Encounter for general adult medical examination without abnormal findings (principal); R71.8 Other abnormality of red blood cells; I49.9 Cardiac arrhythmia, unspecified; E11.9 Type 2 diabetes mellitus without complications; E78.00 Pure hypercholesterolemia, unspecified; I10 Essential (primary) hypertension; I69.354 Hemiplegia and hemiparesis following cerebral infarction affecting left non-dominant side
CPT/HCPCS: 36415; 80053; 85027; 93005; 99285